=== PATIENT | male | born 1985 | race Caucasian/White ===

== ENCOUNTER 2021-01-14 12:49 | Emergency (ER) | payer MEDICAID, OTHER ==
[~2021-01-14] VITALS: Ht 167.6 cm; Wt 66.0 kg
[2021-01-14] MEDS ORDERED: MORPHINE SULFATE 4 MG/ML CPJ (NOT FOR IM USE) IV STA (13:23)
[2021-01-14] MEDS ORDERED: TETANUS, DIPHTHERIA, PERTUSSIS VAC/PF 0.5ML (>10YR OLD) IM ONE (13:30)
[2021-01-14] MEDS ORDERED: MORPHINE SULFATE 2 MG/ML CPJ (NOT FOR IM USE) IV NR (13:45)
[2021-01-14 13:46] LABS: BASOPHILS % 0.6 % (0.0-2.0); EOSINOPHILS % 1.8 % (0.0-5.0); HEMATOCRIT. 42.8 % (42.0-52.0); HEMOGLOBIN. 14.6 g/dL (14.0-18.0); MEAN CORPUSCULAR HEMOGLOBIN 32.7 pg (28.0-32.0); MEAN CORPUSCULAR VOLUME 95.7 fL (80.0-94.0); MEAN PLATELET VOLUME 9.1 fl (7.4-10.4); MONOCYTES % 8.4 % (2.0-8.0); NEUTROPHILS % 65.2 % (40.0-76.0); PLATELET 180 x1000/uL (130-400); RED BLOOD CELL COUNT 4.48 mill/uL (4.7-6.1); RED CELL DISTRIBUTION WIDTH 12.7 % (11.6-14.6)
[2021-01-14 13:53] LABS: CHLORIDE 108 mEq/L (98-107)
[2021-01-14 13:57] LABS: INR 1.1; PARTIAL THROMBOPLASTIN TIME 25.8 sec (23.4-31.0); PROTHROMBIN TIME 11.8 sec (9.6-11.0)
[2021-01-14] MEDS ORDERED: ONDANSETRON HCL 4MG/2ML INJ IV STA (17:27)
[2021-01-14] MEDS ORDERED: NAPR-681 MT (17:56)
[2021-01-14 18:15] VITALS: BP 112/72
[2021-01-31 09:06] LABS: BARBITURATE SCREEN Negative ug/mL (Cutoff:0.1); BENZODIAZEPINE SCREEN Negative ng/mL (Cutoff:20); PHENCYCLIDINE SCREEN Negative ng/mL (Cutoff:8)
== END 2021-01-14 18:15 | disposition home or self-care (01) ==
LOC: ER 12:49
DX: S12.590A Other displaced fracture of sixth cervical vertebra, initial encounter for closed fracture (principal); S01.01XA Laceration without foreign body of scalp, initial encounter; M54.59 Other low back pain; M54.6 Pain in thoracic spine; W14.XXXA Fall from tree, initial encounter; Y93.H2 Activity, gardening and landscaping; Y92.096 Garden or yard of other non-institutional residence as the place of occurrence of the external cause; Y99.0 Civilian activity done for income or pay
CPT/HCPCS: 36415; 70450; 71045; 72125; 72128; 72131; 72170; 80053; 80307; 82962; 83690; 85025; 85610; 85730; 86850; 86900; 86901; 90471; 90715; 96374; 96375; 99291; A4217; J2270; J2405; Z7610

== ENCOUNTER 2021-02-01 11:45 | Emergency (ER) | payer MEDICAID ==
[~2021-02-01] VITALS: Ht 170.2 cm; Wt 63.0 kg
[~2021-02-01 11:45] MED LIST: NAPR-681 MT
[2021-02-01 12:37] VITALS: BP 110/60
== END 2021-02-01 12:39 | disposition home or self-care (01) ==
LOC: ER 11:45
DX: Z48.02 Encounter for removal of sutures (principal)
CPT/HCPCS: 99281

== ENCOUNTER 2021-02-08 21:00 | Emergency (ER) | payer MEDICAID ==
[~2021-02-08] VITALS: Ht 165.1 cm; Wt 64.0 kg
[2021-02-08 21:39] VITALS: BP 113/62
== END 2021-02-09 04:10 | disposition home or self-care (01) ==
LOC: ER 21:00
DX: F07.81 Postconcussional syndrome (principal); F12.10 Cannabis abuse, uncomplicated
CPT/HCPCS: 99284

== ENCOUNTER 2024-05-23 23:23 | Emergency (ER) | payer SELFPAY ==
[~2024-05-23] VITALS: Ht 170.2 cm; Wt 60.0 kg
[2024-05-23 23:36] VITALS: BP 106/66; PULSE 61; RESP 18; TEMP 36.8; O2SAT 99
[2024-05-24] MEDS ORDERED: CYCL10TA21 MT (00:37)
[2024-05-24] MEDS ORDERED: IBUP-2029 MT (00:37)
== END 2024-05-24 01:11 | disposition home or self-care (01) ==
LOC: ER 23:42
DX: M79.602 Pain in left arm (principal); F12.90 Cannabis use, unspecified, uncomplicated; Z79.1 Long term (current) use of non-steroidal anti-inflammatories (NSAID)
CPT/HCPCS: 99283